=== PATIENT | female | born 1975 | race Hispanic/Latino ===

== ENCOUNTER 2020-12-14 20:49 | Emergency (ER) | payer OTHER ==
[2020-12-14] MEDS ORDERED: Acetaminophen/Codeine 30-300mg Tablet ONE (21:16)
[2020-12-14 21:26] LABS: Bilirubin Neg (Negative); Blood, Urine Negative (Negative); Clarity Clear (Clear); Glucose, Urine (Dipstick) Normal (Negative); Ketone, Urine 5 mg/dL (Negative); Leukocyte 25 (Negative); Nitrite Negative (Negative); Protein, Urine (Dipstick) 15 mg/dl (Neg-Trace)
[2020-12-14 21:36] LABS: RBC/HPF 0-3 HPF (0-3)
[2020-12-14 21:38] LABS: Bacteria/HPF 1+ HPF (None Seen); Mucous/LPF 3+ LPF (<2+)
== END 2020-12-14 21:58 | disposition home or self-care (01) ==
LOC: CSHERS 20:49
DX: K43.9 Ventral hernia without obstruction or gangrene (principal); N30.00 Acute cystitis without hematuria
CPT/HCPCS: 81003; 81015; 99284

== ENCOUNTER 2020-12-30 17:09 | Outpatient (CLI) | payer OTHER ==
[2020-12-31 02:12] LABS: SARS-CoV-2 PCR by NAA Not Detected (NotDetected)
== END 2020-12-30 17:10 | disposition home or self-care (01) ==
LOC: CSHLAB 17:09
PROVIDERS: ATTEND Surgery
DX: Z20.822 Contact with and (suspected) exposure to COVID-19 (principal); K43.2 Incisional hernia without obstruction or gangrene
CPT/HCPCS: 87635; U0003; U0005

== ENCOUNTER 2021-01-02 08:46 | Day surgery (SDC) | payer OTHER ==
[2021-01-01 13:35] VITALS: BMI 35.5
[2021-01-02] MEDS ORDERED: Lidocaine 1% MPF 2 ML VIAL ONE (10:06)
[2021-01-02] MEDS ORDERED: Bupivacaine PF 0.5% 30 ML VIAL ONE (10:24)
[2021-01-02] MEDS ORDERED: EPINEPHrine 1 MG/ML AMP ONE (10:24)
[2021-01-02] MEDS ORDERED: Bicitra 30 ML UDCUP ONE (11:39)
[2021-01-02] MEDS ORDERED: Midazolam HCl 2 mg/2 ml Vial ONE ×2 (11:39→11:50)
[2021-01-02] MEDS ORDERED: PROPOFOL 20 ML ONE (11:46)
[2021-01-02] MEDS ORDERED: Ketorolac Tromethamine 30 MG/ML VIAL ONE (11:50)
[2021-01-02] MEDS ORDERED: Glycopyrrolate 0.2 MG/ML 5 ML SYRINGE ONE (11:50)
[2021-01-02] MEDS ORDERED: Fentanyl 100 MCG/2 ML VIAL ONE (11:50)
[2021-01-02] MEDS ORDERED: Rocuronium Bromide 10 MG/ML (10ML VIAL) ONE (11:50)
[2021-01-02] MEDS ORDERED: Dexamethasone 4 mg/ml Vial ONE (11:50)
[2021-01-02] MEDS ORDERED: Ondansetron PF 4 MG/2 ML Vial ONE (11:50)
[2021-01-02] MEDS ORDERED: Lidocaine 1% PF 5 ML VIAL ONE (11:50)
[2021-01-02] MEDS ORDERED: SUGAMMADEX SODIUM 500 MG/5 ML VIAL ONE (13:15)
[2021-01-02] MEDS ORDERED: HYDROcodone/Acetaminophen 5/325 mg Tablet PO PRN (14:30)
== END 2021-01-02 14:39 | disposition home or self-care (01) ==
LOC: CSHSDC 08:46
PROVIDERS: ATTEND Surgery
PROC: 0WUF4JZ Supplement Abdominal Wall with Synthetic Substitute, Percutaneous Endoscopic Approach (ICD-10-PCS; principal; 2021-01-02)
DX: K43.2 Incisional hernia without obstruction or gangrene (principal); K43.9 Ventral hernia without obstruction or gangrene; Z79.899 Other long term (current) drug therapy
CPT/HCPCS: J0171; J0690; J1100; J1885; J2250; J2405; J2704; J3010; S0020

== ENCOUNTER 2022-03-03 23:18 | Emergency (ER) | payer OTHER ==
[2022-03-04] MEDS ORDERED: Dicyclomine 20 MG/2 ML VIAL ONE (00:14)
[2022-03-04] MEDS ORDERED: Mag-Al Plus 1200 MG/1200 MG/120 MG/30 ML UDCUP ONE (00:14)
[2022-03-04] MEDS ORDERED: Lidocaine Viscous Sol 2% 15 ml UD Cup ONE (00:14)
[2022-03-04 00:30] LABS: #Basophils 0.2 10x3/uL (0.0-0.2); #Eosinphils 0.2 10x3/uL (0.0-0.5); #Monocytes 0.7 10x3/uL (0.0-1.1); %Basophils 1.6 % (0.0-2.0); %Eosinophils 2.3 % (0.0-6.0); %Lymphocytes 25.9 % (18.0-47.0); %Monocytes 7.5 % (0.0-10.0); %Neutrophils 62.2 % (40.0-75.0); Hemoglobin 14.5 g/dL (12.0-15.5); Mean Corpuscular Hemoglobin 31.5 pg (27.0-33.0); Mean Corpuscular Volume 92.6 fl (81.6-98.3); Mean Platelet Volume 10.4 fl (7.4-10.4); Platelet Count 322 10x3/uL (150-450); RBC Distribution Width 11.9 % (11.5-14.5); Red Blood Cell (RBC) Count 4.61 10x6/uL (3.90-5.03); White Blood Cell (WBC) Count 9.6 10x3/uL (3.5-10.5)
[2022-03-04 00:45] LABS: ALT (SGPT) 30 U/L (8-55); AST (SGOT) 15 U/L (5-34); Albumin 4.5 g/dL (3.5-5.0); Alkaline Phosphatase 71 U/L (40-110); Anion Gap 18 mmol/L (10-20); BUN (Urea Nitrogen) 14 mg/dL (7.0-18.7); Bilirubin, Total 0.6 mg/dL (0.2-1.2); Calc. Creatinine Clearance 0 mL/min (70-130); Calcium 9.8 mg/dL (7.8-10.44); Carbon Dioxide 23 mmol/L (22-29); Chloride 104 mmol/L (98-107); Globulin 3.9 g/dL (2.4-3.5); Glucose 114 mg/dL (70-105); Potassium 3.7 mmol/L (3.5-5.1); Protein, Total 8.4 g/dL (6.0-8.3); Sodium 141 mmol/L (136-145)
[2022-03-04 01:11] LABS: Bilirubin Neg (Negative); Blood, Urine 10 (Negative); Clarity Clear (Clear); Glucose, Urine (Dipstick) Normal (Negative); Ketone, Urine Negative (Negative); Leukocyte Negative (Negative); Nitrite Negative (Negative); Protein, Urine (Dipstick) Negative (Neg-Trace); Urobilinogen Normal mg/dL (Less than 2)
[2022-03-04 01:21] LABS: Bacteria/HPF Rare-Few HPF (None Seen); Mucous/LPF 1+ LPF (<2+); RBC/HPF 0-3 HPF (0-3); Squamous Epithelial 0-3 HPF (0-3)
== END 2022-03-04 01:28 | disposition home or self-care (01) ==
LOC: CSHERS 23:18
DX: R10.11 Right upper quadrant pain (principal)
CPT/HCPCS: 80053; 81003; 81015; 83690; 84484; 85025; 93005

== ENCOUNTER 2022-03-04 14:53 | Outpatient (CLI) | payer OTHER | END 2022-03-04 14:54 | disposition home or self-care (01) | LOC: CSHULT 14:53 | PROVIDERS: ATTEND Physician Assistant | DX: R10.11 Right upper quadrant pain (principal); K76.0 Fatty (change of) liver, not elsewhere classified | CPT/HCPCS: 76700; 80053; 81003; 81015; 83690; 84484; 85025; 93005; 96372 ==

== ENCOUNTER 2023-04-12 19:15 | Emergency (ER) | payer BC ==
[2023-04-12] MEDS ORDERED: HYDROcodone/Acetaminophen 7.5/325 mg Tablet ONE (21:51)
== END 2023-04-12 22:05 | disposition home or self-care (01) ==
LOC: CSHERS 19:15
DX: M25.531 Pain in right wrist (principal)

== ENCOUNTER 2023-07-21 08:37 | Outpatient (CLI) | payer BC | END 2023-07-21 08:38 | disposition home or self-care (01) | LOC: CSHMAMMO 08:37 | PROVIDERS: ATTEND Physician Assistant | DX: Z12.31 Encounter for screening mammogram for malignant neoplasm of breast (principal); Z80.3 Family history of malignant neoplasm of breast | CPT/HCPCS: 77063; 77067 ==

== ENCOUNTER 2023-12-01 20:33 | Emergency (ER) | payer BC, OTHER ==
[2023-12-01] MEDS ORDERED: Morphine 4 MG/ML VIAL ONE (22:54)
[2023-12-01] MEDS ORDERED: Ondansetron PF 4 MG/2 ML Vial ONE (22:54)
[2023-12-01 23:00] LABS: #Basophils 0.2 10x3/uL (0.0-0.2); #Eosinphils 0.3 10x3/uL (0.0-0.5); #Monocytes 0.7 10x3/uL (0.0-1.1); #Neutrophils 6.6 10x3/uL (1.5-8.4); %Basophils 1.6 % (0.0-2.0); %Eosinophils 2.6 % (0.0-6.0); %Lymphocytes 22.2 % (18.0-47.0); %Monocytes 7.3 % (0.0-10.0); %Neutrophils 65.6 % (40.0-75.0); Hemoglobin 14.4 g/dL (12.0-15.5); Mean Corpuscular HGB CONC 33.5 g/dL (32.0-36.0); Mean Corpuscular Hemoglobin 30.3 pg (27.0-33.0); Mean Corpuscular Volume 90.5 fl (81.6-98.3); Mean Platelet Volume 10.1 fl (7.4-10.4); Platelet Count 321 10x3/uL (150-450); RBC Distribution Width 12.4 % (11.5-14.5); Red Blood Cell (RBC) Count 4.75 10x6/uL (3.90-5.03)
[2023-12-01 23:10] LABS: ALT (SGPT) 26 U/L (8-55); AST (SGOT) 18 U/L (5-34); Albumin 4.4 g/dL (3.5-5.0); Alkaline Phosphatase 64 U/L (40-110); Anion Gap 17 mmol/L (10-20); BUN (Urea Nitrogen) 23 mg/dL (7.0-18.7); Bilirubin, Total 0.5 mg/dL (0.2-1.2); Calc. Creatinine Clearance 0 mL/min (70-130); Calcium 9.5 mg/dL (7.8-10.44); Carbon Dioxide 21 mmol/L (22-29); Chloride 107 mmol/L (98-107); Estimated GFR 103; Globulin 3.5 g/dL (2.4-3.5); Glucose 111 mg/dL (70-105); Lipase 23 U/L (8-78); Potassium 3.8 mmol/L (3.5-5.1); Protein, Total 7.9 g/dL (6.0-8.3); Sodium 141 mmol/L (136-145)
[2023-12-01 23:22] LABS: Bilirubin Neg (Negative); Blood, Urine 10 (Negative); Clarity Clear (Clear); Glucose, Urine (Dipstick) Normal (Negative); Ketone, Urine Negative (Negative); Leukocyte Negative (Negative); Nitrite Negative (Negative); Protein, Urine (Dipstick) Negative (Neg-Trace); Specific Gravity, Urine 1.025 (1.005-1.030); Urobilinogen Normal mg/dL (Less than 2)
[2023-12-02 00:13] LABS: CAUTI Indications for Culture Pelvic or flank pain; RBC/HPF 0-3 HPF (0-3); WBC/HPF 0-3 HPF (0-3)
[2023-12-02] MEDS ORDERED: Morphine 4 MG/ML VIAL ONE (00:13)
[2023-12-02 00:14] LABS: Bacteria/HPF None Seen HPF (None Seen); Squamous Epithelial None Seen HPF (0-3)
[2023-12-02] MEDS ORDERED: Ketorolac Tromethamine 30 MG (1 mL) VIAL ONE (00:14)
[2023-12-02] MEDS ORDERED: Dicyclomine 20 MG/2 ML VIAL ONE (00:14)
[2023-12-02 00:15] LABS: Urine Culture Reflex No No
== END 2023-12-02 01:06 | disposition home or self-care (01) ==
LOC: CSHERS 20:33
DX: R10.12 Left upper quadrant pain (principal); J45.909 Unspecified asthma, uncomplicated; Z79.899 Other long term (current) drug therapy
CPT/HCPCS: 74177; 80053; 81001; 83690; 85025; 96372; 96374; 96375; 96376; J1885; J2270; J2405

== ENCOUNTER 2025-07-31 15:02 | Outpatient (CLI) | payer OTHER | END 2025-07-31 15:03 | disposition home or self-care (01) | LOC: CSHMAMMO 15:02 | PROVIDERS: ATTEND Physician Assistant | DX: Z12.31 Encounter for screening mammogram for malignant neoplasm of breast (principal); Z80.3 Family history of malignant neoplasm of breast; R92.333 Mammographic heterogeneous density, bilateral breasts | CPT/HCPCS: 77063; 77067 ==